=== PATIENT | female | born 2000 | race Caucasian/White ===

== ENCOUNTER → 2022-03-13 13:40 | Outpatient (CLI) | payer OTHER, MEDICAID, SELFPAY ==
--- NOTE | 2022-03-13 | DI.MRI.S_ITS ---
PROCEDURE: MR PELVIS WO CON INDICATIONS: Sacrococcygeal disorders, not elsewhere classified TECHNIQUE: Noncontrast axial and coronal T1 spin echo and STIR through the lumbosacral plexus region. Optional contrast may be given, followed by axial and coronal T1 spin echo with fat saturation through the sacral plexus. COMPARISON: None. FINDINGS: Image quality: Good Bones: The pelvic ring is intact. No suspicious edema on T2 weighted images. The sacrum appears intact. The coccyx appears intact, without pathologic edema no dislocation. The sacroiliac joints are congruent, without definite inflammatory changes. Partially visualized lumbosacral spine without edema noted, consider dedicated spine MRI if there is concern for pathology in this region. Soft tissues: Intrapelvic structures are not well seen on this study, consider ultrasound if there is concern for pathology in this region. No gross abnormality is apparent. Physiologic appearance of the uterus and adnexal structures on limited evaluation. The piriformis muscles are symmetric. No high-grade inflammation in the major pelvic tendinous attachments. No significant joint effusion. IMPRESSION: No acute pelvic pathology identified on noncontrast MRI. Other findings as above. Dictated by: Raymond Syed M.D. on 03/13/2022 at 16:58 Approved by: Raymond Syed M.D. on 03/13/2022 at 17:05
== END ==
PROVIDERS: Referring Provider Physician Assistant Surgical; Visit Provider Physician Assistant Surgical
DX: M53.3 Sacrococcygeal disorders, not elsewhere classified (principal); M54.50 Low back pain, unspecified; G89.29 Other chronic pain
CPT/HCPCS: 72195